=== PATIENT | male | born 1975 | race Caucasian/White ===

== ENCOUNTER 2017-12-20 17:45 | Inpatient (IN) | payer BC ==
[2017-12-20 21:47] LABS: ADD MAN DIFF? NO
[2017-12-20 21:51] LABS: WHITE BLOOD COUNT 9.7 10^3/ul (4.8-10.8)
[2017-12-20 21:51] LABS: BASOPHIL # 0.1 10^3/ul (0.0-0.1); BASOPHILS % 0.5 % (0.0-2.0); EOSINOPHILS # 0.1 10^3/ul (0.0-0.5); EOSINOPHILS % 1.2 % (0.0-7.0); HEMATOCRIT 39.2 % (42.0-52.0); HEMOGLOBIN 12.4 g/dl (14.0-18.0); LYMPHOCYTES # 2.4 10^3/ul (0.8-2.9); LYMPHOCYTES % 24.6 % (15.0-51.0); MEAN CORPUSCULAR HEMOGLOBIN 26.9 pg (29.0-33.0); MEAN CORPUSCULAR HGB CONC 31.6 g/dl (32.0-37.0); MONOCYTE # 0.8 10^3/ul (0.3-0.9); MONOCYTES % 8.3 % (0.0-11.0); NEUTROPHIL # 6.3 10^3/ul (1.6-7.5); NEUTROPHILS % 65.2 % (39.0-77.0); PLATELET COUNT 294 10^3/UL (140-415); RED BLOOD COUNT 4.61 10^6/ul (4.70-6.10)
[2017-12-20 22:11] LABS: ALANINE AMINOTRANSFERASE 19 IU/L (13-69); ALBUMIN 4.2 g/dl (3.3-4.9); ALBUMIN/GLOBULIN RATIO 0.87; ALKALINE PHOSPHATASE 73 IU/L (42-121); ANION GAP 14 (8-16); ASPARTATE AMINO TRANSFERASE 21 IU/L (15-46); BILIRUBIN,INDIRECT 0.3 mg/dl (0-1.1); BILIRUBIN,TOTAL 0.3 mg/dl (0.2-1.3); BLOOD UREA NITROGEN 15 mg/dl (7-20); CALCIUM 9.5 mg/dl (8.4-10.2); CARBON DIOXIDE 26 mmol/L (21-31); CHLORIDE 108 mmol/L (97-110); CREATININE 0.91 mg/dl (0.61-1.24); GLUCOSE 101 mg/dl (70-220); POTASSIUM 4.6 mmol/L (3.5-5.1); SODIUM 143 mmol/L (135-144)
[2017-12-20] MEDS: SOD CHLORIDE 0.9% 500 ML IV (22:11)
[2017-12-20] MEDS: CEFEPIME 2GM/50 ML (PMX) 50 ML IVPB (22:11)
[2017-12-20] MEDS: VANCOMYCIN 1 GM (PMX) 250 ML IVPB (22:53)
[2017-12-20] MEDS: IOHEXOL 300MG/ML 150 ML BTL (23:29)
[2017-12-20] MEDS: SOD CHLORIDE 0.9% 100 ML (23:29)
[2017-12-20] MEDS ORDERED: ACETAMINOPHEN 325 MG TAB PO (23:30)
[2017-12-20] MEDS ORDERED: ONDANSETRON 4 MG INJ IV (23:30)
[2017-12-21] MEDS ORDERED: NACL 0.9% 3 ML SYG IV (05:00)
[2017-12-21] MEDS ORDERED: ONDANSETRON 4 MG INJ IV (05:00)
[2017-12-21] MEDS ORDERED: ALBUTEROL/IPRATROPIUM (NEB) 3 ML AMP HHN (05:00)
[2017-12-21] MEDS ORDERED: ACETAMINOPHEN 325 MG TAB PO (05:00)
[2017-12-21 05:49] LABS: ADD MAN DIFF? NO
[2017-12-21 06:01] LABS: WHITE BLOOD COUNT 8.1 10^3/ul (4.8-10.8)
[2017-12-21 06:01] LABS: BASOPHIL # 0.1 10^3/ul (0.0-0.1); BASOPHILS % 0.6 % (0.0-2.0); EOSINOPHILS # 0.1 10^3/ul (0.0-0.5); EOSINOPHILS % 1.5 % (0.0-7.0); HEMATOCRIT 36.1 % (42.0-52.0); HEMOGLOBIN 11.6 g/dl (14.0-18.0); LYMPHOCYTES # 1.5 10^3/ul (0.8-2.9); LYMPHOCYTES % 18.6 % (15.0-51.0); MEAN CORPUSCULAR HEMOGLOBIN 27.2 pg (29.0-33.0); MEAN CORPUSCULAR HGB CONC 32.1 g/dl (32.0-37.0); MEAN CORPUSCULAR VOLUME 84.7 fl (82.0-101.0); MEAN PLATELET VOLUME 10.4 fl (7.4-10.4); MONOCYTE # 0.9 10^3/ul (0.3-0.9); MONOCYTES % 11.4 % (0.0-11.0); NEUTROPHIL # 5.4 10^3/ul (1.6-7.5); NEUTROPHILS % 67.7 % (39.0-77.0); PLATELET COUNT 269 10^3/UL (140-415); RED BLOOD COUNT 4.26 10^6/ul (4.70-6.10)
[2017-12-21 07:23] LABS: ALANINE AMINOTRANSFERASE 24 IU/L (13-69); ALBUMIN 3.3 g/dl (3.3-4.9); ALBUMIN/GLOBULIN RATIO 0.82; ALKALINE PHOSPHATASE 57 IU/L (42-121); ANION GAP 12 (8-16); ASPARTATE AMINO TRANSFERASE 18 IU/L (15-46); BILIRUBIN,INDIRECT 0.4 mg/dl (0-1.1); BILIRUBIN,TOTAL 0.4 mg/dl (0.2-1.3); BLOOD UREA NITROGEN 13 mg/dl (7-20); CARBON DIOXIDE 28 mmol/L (21-31); CHLORIDE 109 mmol/L (97-110); CREATININE 1.13 mg/dl (0.61-1.24); GLUCOSE 133 mg/dl (70-220); MAGNESIUM 2.2 mg/dl (1.7-2.5); POTASSIUM 3.9 mmol/L (3.5-5.1); SODIUM 145 mmol/L (135-144); TOTAL PROTEIN 7.3 g/dl (6.1-8.1)
[2017-12-21] MEDS: LEVOFLOXACIN 500MG/D5W (PMX) 100 ML IVPB (09:47)
[2017-12-22 05:54] LABS: ADD MAN DIFF? NO
[2017-12-22 06:03] LABS: WHITE BLOOD COUNT 9.4 10^3/ul (4.8-10.8)
[2017-12-22 06:03] LABS: BASOPHIL # 0.1 10^3/ul (0.0-0.1); BASOPHILS % 0.5 % (0.0-2.0); EOSINOPHILS # 0.2 10^3/ul (0.0-0.5); EOSINOPHILS % 1.6 % (0.0-7.0); HEMATOCRIT 37.1 % (42.0-52.0); HEMOGLOBIN 11.8 g/dl (14.0-18.0); LYMPHOCYTES # 1.8 10^3/ul (0.8-2.9); LYMPHOCYTES % 18.8 % (15.0-51.0); MEAN CORPUSCULAR HEMOGLOBIN 26.5 pg (29.0-33.0); MEAN CORPUSCULAR HGB CONC 31.8 g/dl (32.0-37.0); MEAN CORPUSCULAR VOLUME 83.4 fl (82.0-101.0); MEAN PLATELET VOLUME 10.4 fl (7.4-10.4); MONOCYTE # 1.1 10^3/ul (0.3-0.9); MONOCYTES % 11.3 % (0.0-11.0); NEUTROPHIL # 6.3 10^3/ul (1.6-7.5); NEUTROPHILS % 67.5 % (39.0-77.0); PLATELET COUNT 266 10^3/UL (140-415); RED BLOOD COUNT 4.45 10^6/ul (4.70-6.10); RED CELL DISTRIBUTION WIDTH 13.2 % (11.5-14.5)
[2017-12-22 07:01] LABS: ANION GAP 12 (8-16); BLOOD UREA NITROGEN 16 mg/dl (7-20); CALCIUM 9.3 mg/dl (8.4-10.2); CARBON DIOXIDE 29 mmol/L (21-31); CHLORIDE 106 mmol/L (97-110); CREATININE 0.95 mg/dl (0.61-1.24); GLUCOSE 91 mg/dl (70-220); MAGNESIUM 2.3 mg/dl (1.7-2.5); PHOSPHORUS 3.6 mg/dl (2.5-4.9); POTASSIUM 4.4 mmol/L (3.5-5.1); SODIUM 143 mmol/L (135-144)
[2017-12-22] MEDS: LEVOFLOXACIN 500MG/D5W (PMX) 100 ML IVPB (09:00)
[2017-12-22] MEDS: ISONIAZID 300 MG TAB PO (19:01)
[2017-12-22] MEDS: RIFAMPIN 300 MG CAP PO (19:01)
[2017-12-22] MEDS: ETHAMBUTOL 400 MG TAB PO (19:01)
[2017-12-22] MEDS: PYRAZINAMIDE 500 MG TAB PO (19:02)
[2017-12-22] MEDS: PYRIDOXINE 50 MG TAB PO (19:02)
[2017-12-23 06:16] LABS: ADD MAN DIFF? NO
[2017-12-23 06:22] LABS: BASOPHIL # 0.1 10^3/ul (0.0-0.1); BASOPHILS % 0.6 % (0.0-2.0); EOSINOPHILS # 0.2 10^3/ul (0.0-0.5); EOSINOPHILS % 1.5 % (0.0-7.0); HEMATOCRIT 40.1 % (42.0-52.0); HEMOGLOBIN 12.4 g/dl (14.0-18.0); LYMPHOCYTES # 1.8 10^3/ul (0.8-2.9); LYMPHOCYTES % 18.6 % (15.0-51.0); MEAN CORPUSCULAR HEMOGLOBIN 26.6 pg (29.0-33.0); MEAN CORPUSCULAR HGB CONC 30.9 g/dl (32.0-37.0); MEAN CORPUSCULAR VOLUME 85.9 fl (82.0-101.0); MEAN PLATELET VOLUME 10.6 fl (7.4-10.4); MONOCYTE # 1.1 10^3/ul (0.3-0.9); MONOCYTES % 11.4 % (0.0-11.0); NEUTROPHIL # 6.7 10^3/ul (1.6-7.5); NEUTROPHILS % 67.6 % (39.0-77.0); PLATELET COUNT 292 10^3/UL (140-415); RED BLOOD COUNT 4.67 10^6/ul (4.70-6.10); RED CELL DISTRIBUTION WIDTH 13.1 % (11.5-14.5)
[2017-12-23 06:22] LABS: WHITE BLOOD COUNT 9.9 10^3/ul (4.8-10.8)
[2017-12-23 06:42] LABS: PHOSPHORUS 3.9 mg/dl (2.5-4.9)
[2017-12-23 06:42] LABS: MAGNESIUM 2.1 mg/dl (1.7-2.5)
[2017-12-23 06:48] LABS: ANION GAP 14 (8-16); BLOOD UREA NITROGEN 21 mg/dl (7-20); CALCIUM 9.3 mg/dl (8.4-10.2); CARBON DIOXIDE 28 mmol/L (21-31); CHLORIDE 107 mmol/L (97-110); CREATININE 0.95 mg/dl (0.61-1.24); GLUCOSE 103 mg/dl (70-220); POTASSIUM 4.3 mmol/L (3.5-5.1); SODIUM 145 mmol/L (135-144)
[2017-12-23] MEDS: LEVOFLOXACIN 500MG/D5W (PMX) 100 ML IVPB (09:18)
[2017-12-23] MEDS: RIFAMPIN 300 MG CAP PO (09:19)
[2017-12-23] MEDS: ETHAMBUTOL 400 MG TAB PO (09:19)
[2017-12-23] MEDS: PYRIDOXINE 50 MG TAB PO (09:19)
[2017-12-23] MEDS: PYRAZINAMIDE 500 MG TAB PO (09:19)
[2017-12-23] MEDS: ISONIAZID 300 MG TAB PO (09:27)
[2017-12-24] MEDS: LEVOFLOXACIN 500MG/D5W (PMX) 100 ML IVPB (08:54)
[2017-12-24] MEDS: ETHAMBUTOL 400 MG TAB PO (08:54)
[2017-12-24] MEDS: PYRAZINAMIDE 500 MG TAB PO (08:54)
[2017-12-24] MEDS: ISONIAZID 300 MG TAB PO (08:54)
[2017-12-24] MEDS: RIFAMPIN 300 MG CAP PO (08:55)
[2017-12-24] MEDS: PYRIDOXINE 50 MG TAB PO (08:55)
[2017-12-24 12:03] LABS: HAAIG REFLEX REFLEX FILED
[2017-12-24 13:09] LABS: HEPATITIS B SURFACE ANTIGEN NEGATIVE (NEGATIVE)
[2017-12-24 13:26] LABS: HEPATITIS B CORE ANTIBODY NEGATIVE (NEGATIVE); HIV 1&2 ANTIBODY NEGATIVE (NEGATIVE)
[2017-12-24 14:34] LABS: HEPATITIS C VIRAL ANTIBODY NEGATIVE (NEGATIVE)
[2017-12-24] MEDS: CIPROFLOXACIN HCL OTIC DROP 0.25 ML BOTH EARS ×2 (17:22→20:56)
[2017-12-25] MEDS: PYRAZINAMIDE 500 MG TAB PO (09:02)
[2017-12-25] MEDS: CIPROFLOXACIN HCL OTIC DROP 0.25 ML BOTH EARS ×2 (09:02→22:13)
[2017-12-25] MEDS: PYRIDOXINE 50 MG TAB PO (09:02)
[2017-12-25] MEDS: RIFAMPIN 300 MG CAP PO (09:02)
[2017-12-25] MEDS: ISONIAZID 300 MG TAB PO (09:03)
[2017-12-25] MEDS: ETHAMBUTOL 400 MG TAB PO (09:10)
[2017-12-26] MEDS: CIPROFLOXACIN HCL OTIC DROP 0.25 ML BOTH EARS ×2 (08:28→20:25)
[2017-12-26] MEDS: PYRAZINAMIDE 500 MG TAB PO (08:28)
[2017-12-26] MEDS: ISONIAZID 300 MG TAB PO (08:28)
[2017-12-26] MEDS: PYRIDOXINE 50 MG TAB PO (08:28)
[2017-12-26] MEDS: RIFAMPIN 300 MG CAP PO (08:28)
[2017-12-26] MEDS: ETHAMBUTOL 400 MG TAB PO (08:29)
[2017-12-26] MEDS ORDERED: CEPASTAT LOZENGE MT (12:30)
[2017-12-27] MEDS: CIPROFLOXACIN HCL OTIC DROP 0.25 ML BOTH EARS ×2 (08:48→21:12)
[2017-12-27] MEDS: PYRAZINAMIDE 500 MG TAB PO (08:49)
[2017-12-27] MEDS: ISONIAZID 300 MG TAB PO (08:49)
[2017-12-27] MEDS: PYRIDOXINE 50 MG TAB PO (08:49)
[2017-12-27] MEDS: RIFAMPIN 300 MG CAP PO (08:49)
[2017-12-27] MEDS: ETHAMBUTOL 400 MG TAB PO (08:49)
[2017-12-28] MEDS: ISONIAZID 300 MG TAB PO (09:21)
[2017-12-28] MEDS: PYRAZINAMIDE 500 MG TAB PO (09:21)
[2017-12-28] MEDS: ETHAMBUTOL 400 MG TAB PO (09:21)
[2017-12-28] MEDS: RIFAMPIN 300 MG CAP PO (09:21)
[2017-12-28] MEDS: CIPROFLOXACIN HCL OTIC DROP 0.25 ML BOTH EARS ×2 (09:21→21:22)
[2017-12-28] MEDS: PYRIDOXINE 50 MG TAB PO (09:21)
[2017-12-28 20:42] LABS: NIL 0.04 IU/mL; QUANTIFERON(R)-TB GOLD NEGATIVE (NEGATIVE); TB-NIL <0.00 IU/mL
[2017-12-29] MEDS: PYRIDOXINE 50 MG TAB PO (08:19)
[2017-12-29] MEDS: ISONIAZID 300 MG TAB PO (08:19)
[2017-12-29] MEDS: CIPROFLOXACIN HCL OTIC DROP 0.25 ML BOTH EARS ×2 (08:19→20:10)
[2017-12-29] MEDS: RIFAMPIN 300 MG CAP PO (08:19)
[2017-12-29] MEDS: PYRAZINAMIDE 500 MG TAB PO (08:19)
[2017-12-29] MEDS: ETHAMBUTOL 400 MG TAB PO (08:20)
[2017-12-30] MEDS: RIFAMPIN 300 MG CAP PO (09:00)
[2017-12-30] MEDS: ISONIAZID 300 MG TAB PO (09:01)
[2017-12-30] MEDS: PYRIDOXINE 50 MG TAB PO (09:01)
[2017-12-30] MEDS: ETHAMBUTOL 400 MG TAB PO (09:01)
[2017-12-30] MEDS: PYRAZINAMIDE 500 MG TAB PO (09:01)
[2017-12-30] MEDS: CIPROFLOXACIN HCL OTIC DROP 0.25 ML BOTH EARS ×2 (09:02→20:10)
[2017-12-31] MEDS: CIPROFLOXACIN HCL OTIC DROP 0.25 ML BOTH EARS ×2 (08:24→22:22)
[2017-12-31] MEDS: RIFAMPIN 300 MG CAP PO (08:24)
[2017-12-31] MEDS: ISONIAZID 300 MG TAB PO (08:24)
[2017-12-31] MEDS: PYRIDOXINE 50 MG TAB PO (08:24)
[2017-12-31] MEDS: ETHAMBUTOL 400 MG TAB PO (08:24)
[2017-12-31] MEDS: PYRAZINAMIDE 500 MG TAB PO (08:24)
[2017-12-31 12:46] LABS: ALANINE AMINOTRANSFERASE 69 IU/L (13-69); ALBUMIN/GLOBULIN RATIO 0.78; ALKALINE PHOSPHATASE 88 IU/L (42-121); ANION GAP 11 (8-16); ASPARTATE AMINO TRANSFERASE 49 IU/L (15-46); BILIRUBIN,INDIRECT 0.5 mg/dl (0-1.1); BILIRUBIN,TOTAL 0.5 mg/dl (0.2-1.3); BLOOD UREA NITROGEN 17 mg/dl (7-20); CARBON DIOXIDE 29 mmol/L (21-31); CHLORIDE 105 mmol/L (97-110); CREATININE 0.92 mg/dl (0.61-1.24); GLUCOSE 93 mg/dl (70-220); POTASSIUM 4.2 mmol/L (3.5-5.1); SODIUM 141 mmol/L (135-144); TOTAL PROTEIN 9.1 g/dl (6.1-8.1)
[2018-01-01] MEDS: ETHAMBUTOL 400 MG TAB PO (08:29)
[2018-01-01] MEDS: RIFAMPIN 300 MG CAP PO (08:29)
[2018-01-01] MEDS: ISONIAZID 300 MG TAB PO (08:29)
[2018-01-01] MEDS: PYRAZINAMIDE 500 MG TAB PO (08:29)
[2018-01-01] MEDS: PYRIDOXINE 50 MG TAB PO (08:29)
[2018-01-01] MEDS: CIPROFLOXACIN HCL OTIC DROP 0.25 ML BOTH EARS ×2 (08:29→20:42)
[2018-01-02] MEDS: PYRIDOXINE 50 MG TAB PO (08:27)
[2018-01-02] MEDS: RIFAMPIN 300 MG CAP PO (08:27)
[2018-01-02] MEDS: CIPROFLOXACIN HCL OTIC DROP 0.25 ML BOTH EARS ×2 (08:27→20:55)
[2018-01-02] MEDS: ISONIAZID 300 MG TAB PO (08:27)
[2018-01-02] MEDS: ETHAMBUTOL 400 MG TAB PO (08:27)
[2018-01-02] MEDS: PYRAZINAMIDE 500 MG TAB PO (08:28)
[2018-01-03] MEDS: ISONIAZID 300 MG TAB PO (08:18)
[2018-01-03] MEDS: PYRIDOXINE 50 MG TAB PO (08:18)
[2018-01-03] MEDS: PYRAZINAMIDE 500 MG TAB PO (08:18)
[2018-01-03] MEDS: RIFAMPIN 300 MG CAP PO (08:18)
[2018-01-03] MEDS: CIPROFLOXACIN HCL OTIC DROP 0.25 ML BOTH EARS ×2 (08:19→20:35)
[2018-01-03] MEDS: ETHAMBUTOL 400 MG TAB PO (08:19)
[2018-01-03 09:18] LABS: ALANINE AMINOTRANSFERASE 66 IU/L (13-69); ALBUMIN 3.6 g/dl (3.3-4.9); ALBUMIN/GLOBULIN RATIO 0.73; ALKALINE PHOSPHATASE 87 IU/L (42-121); ANION GAP 13 (8-16); ASPARTATE AMINO TRANSFERASE 54 IU/L (15-46); BILIRUBIN,INDIRECT 0.2 mg/dl (0-1.1); BILIRUBIN,TOTAL 0.2 mg/dl (0.2-1.3); BLOOD UREA NITROGEN 17 mg/dl (7-20); CALCIUM 9.7 mg/dl (8.4-10.2); CARBON DIOXIDE 27 mmol/L (21-31); CHLORIDE 106 mmol/L (97-110); CREATININE 0.96 mg/dl (0.61-1.24); GLUCOSE 100 mg/dl (70-220); POTASSIUM 4.3 mmol/L (3.5-5.1); SODIUM 142 mmol/L (135-144); TOTAL PROTEIN 8.5 g/dl (6.1-8.1)
[2018-01-04] MEDS: ETHAMBUTOL 400 MG TAB PO (08:35)
[2018-01-04] MEDS: ISONIAZID 300 MG TAB PO (08:35)
[2018-01-04] MEDS: PYRIDOXINE 50 MG TAB PO (08:35)
[2018-01-04] MEDS: CIPROFLOXACIN HCL OTIC DROP 0.25 ML BOTH EARS ×2 (08:35→20:57)
[2018-01-04] MEDS: RIFAMPIN 300 MG CAP PO (08:36)
[2018-01-04] MEDS: PYRAZINAMIDE 500 MG TAB PO (08:36)
[2018-01-05] MEDS: CIPROFLOXACIN HCL OTIC DROP 0.25 ML BOTH EARS ×2 (08:45→20:59)
[2018-01-05] MEDS: PYRAZINAMIDE 500 MG TAB PO (08:45)
[2018-01-05] MEDS: ISONIAZID 300 MG TAB PO (08:45)
[2018-01-05] MEDS: RIFAMPIN 300 MG CAP PO (08:45)
[2018-01-05] MEDS: ETHAMBUTOL 400 MG TAB PO (08:45)
[2018-01-05] MEDS: PYRIDOXINE 50 MG TAB PO (08:45)
[2018-01-06] MEDS: RIFAMPIN 300 MG CAP PO (08:14)
[2018-01-06] MEDS: PYRIDOXINE 50 MG TAB PO (08:14)
[2018-01-06] MEDS: PYRAZINAMIDE 500 MG TAB PO (08:14)
[2018-01-06] MEDS: ISONIAZID 300 MG TAB PO (08:14)
[2018-01-06] MEDS: ETHAMBUTOL 400 MG TAB PO (08:14)
[2018-01-06] MEDS ORDERED: ONDANSETRON 4 MG TAB PO (14:00)
[2018-01-07] MEDS: PYRAZINAMIDE 500 MG TAB PO (08:50)
[2018-01-07] MEDS: PYRIDOXINE 50 MG TAB PO (08:50)
[2018-01-07] MEDS: ETHAMBUTOL 400 MG TAB PO (08:50)
[2018-01-07] MEDS: ISONIAZID 300 MG TAB PO (08:50)
[2018-01-07] MEDS: RIFAMPIN 300 MG CAP PO (08:50)
[2018-01-07 12:38] LABS: ADD MAN DIFF? NO
[2018-01-07 12:44] LABS: BASOPHIL # 0.1 10^3/ul (0.0-0.1); BASOPHILS % 0.6 % (0.0-2.0); EOSINOPHILS # 0.1 10^3/ul (0.0-0.5); EOSINOPHILS % 1.1 % (0.0-7.0); HEMATOCRIT 39.1 % (42.0-52.0); HEMOGLOBIN 12.4 g/dl (14.0-18.0); LYMPHOCYTES # 1.8 10^3/ul (0.8-2.9); LYMPHOCYTES % 18.3 % (15.0-51.0); MEAN CORPUSCULAR HEMOGLOBIN 26.7 pg (29.0-33.0); MEAN CORPUSCULAR HGB CONC 31.7 g/dl (32.0-37.0); MEAN CORPUSCULAR VOLUME 84.1 fl (82.0-101.0); MONOCYTE # 0.8 10^3/ul (0.3-0.9); MONOCYTES % 8.4 % (0.0-11.0); NEUTROPHILS % 71.3 % (39.0-77.0); PLATELET COUNT 280 10^3/UL (140-415); RED BLOOD COUNT 4.65 10^6/ul (4.70-6.10)
[2018-01-07 12:44] LABS: WHITE BLOOD COUNT 9.8 10^3/ul (4.8-10.8)
[2018-01-07 13:18] LABS: ALANINE AMINOTRANSFERASE 85 IU/L (13-69); ALBUMIN 3.4 g/dl (3.3-4.9); ALKALINE PHOSPHATASE 83 IU/L (42-121); ASPARTATE AMINO TRANSFERASE 55 IU/L (15-46); BILIRUBIN,INDIRECT 0.7 mg/dl (0-1.1); BILIRUBIN,TOTAL 0.7 mg/dl (0.2-1.3); TOTAL PROTEIN 7.7 g/dl (6.1-8.1)
[2018-01-08] MEDS: RIFAMPIN 300 MG CAP PO (08:32)
[2018-01-08] MEDS: PYRAZINAMIDE 500 MG TAB PO (08:32)
[2018-01-08] MEDS: ETHAMBUTOL 400 MG TAB PO (08:32)
[2018-01-08] MEDS: ISONIAZID 300 MG TAB PO (08:32)
[2018-01-08] MEDS: PYRIDOXINE 50 MG TAB PO (08:33)
[2018-01-09] MEDS: PYRIDOXINE 50 MG TAB PO (08:35)
[2018-01-09] MEDS: RIFAMPIN 300 MG CAP PO (08:35)
[2018-01-09] MEDS: ISONIAZID 300 MG TAB PO (08:35)
[2018-01-09] MEDS: PYRAZINAMIDE 500 MG TAB PO (09:52)
[2018-01-09] MEDS: ETHAMBUTOL 400 MG TAB PO (09:52)
[2018-01-10] MEDS: PYRAZINAMIDE 500 MG TAB PO (08:24)
[2018-01-10] MEDS: ISONIAZID 300 MG TAB PO (08:24)
[2018-01-10] MEDS: PYRIDOXINE 50 MG TAB PO (08:24)
[2018-01-10] MEDS: ETHAMBUTOL 400 MG TAB PO (08:24)
[2018-01-10] MEDS: RIFAMPIN 300 MG CAP PO (08:24)
[2018-01-10 11:04] LABS: ADD MAN DIFF? NO
[2018-01-10 11:06] LABS: BASOPHILS % 0.3 % (0.0-2.0); EOSINOPHILS # 0.1 10^3/ul (0.0-0.5); EOSINOPHILS % 0.6 % (0.0-7.0); HEMATOCRIT 38.8 % (42.0-52.0); HEMOGLOBIN 12.5 g/dl (14.0-18.0); LYMPHOCYTES # 1.5 10^3/ul (0.8-2.9); MEAN CORPUSCULAR HGB CONC 32.2 g/dl (32.0-37.0); MEAN CORPUSCULAR VOLUME 83.8 fl (82.0-101.0); MONOCYTE # 0.7 10^3/ul (0.3-0.9); MONOCYTES % 7.4 % (0.0-11.0); NEUTROPHIL # 7.4 10^3/ul (1.6-7.5); NEUTROPHILS % 76.4 % (39.0-77.0); PLATELET COUNT 275 10^3/UL (140-415); RED BLOOD COUNT 4.63 10^6/ul (4.70-6.10)
[2018-01-10 11:06] LABS: WHITE BLOOD COUNT 9.7 10^3/ul (4.8-10.8)
[2018-01-10 11:24] LABS: ALANINE AMINOTRANSFERASE 72 IU/L (13-69); ALBUMIN 3.3 g/dl (3.3-4.9); ALKALINE PHOSPHATASE 78 IU/L (42-121); ASPARTATE AMINO TRANSFERASE 42 IU/L (15-46); BILIRUBIN,INDIRECT 0.6 mg/dl (0-1.1); BILIRUBIN,TOTAL 0.6 mg/dl (0.2-1.3); TOTAL PROTEIN 7.5 g/dl (6.1-8.1)
[2018-01-10 11:25] LABS: ALANINE AMINOTRANSFERASE 60 IU/L (13-69); ALBUMIN 3.8 g/dl (3.3-4.9); ALKALINE PHOSPHATASE 80 IU/L (42-121); ANION GAP 13 (8-16); ASPARTATE AMINO TRANSFERASE 44 IU/L (15-46); BILIRUBIN,INDIRECT 0.5 mg/dl (0-1.1); BILIRUBIN,TOTAL 0.5 mg/dl (0.2-1.3); BLOOD UREA NITROGEN 13 mg/dl (7-20); CALCIUM 9.5 mg/dl (8.4-10.2); CARBON DIOXIDE 27 mmol/L (21-31); CHLORIDE 107 mmol/L (97-110); CREATININE 0.88 mg/dl (0.61-1.24); GLUCOSE 103 mg/dl (70-220); POTASSIUM 4.1 mmol/L (3.5-5.1); SODIUM 143 mmol/L (135-144); TOTAL PROTEIN 8.5 g/dl (6.1-8.1)
[2018-01-11] MEDS: PYRAZINAMIDE 500 MG TAB PO (08:57)
[2018-01-11] MEDS: RIFAMPIN 300 MG CAP PO (08:57)
[2018-01-11] MEDS: ISONIAZID 300 MG TAB PO (08:57)
[2018-01-11] MEDS: PYRIDOXINE 50 MG TAB PO (08:57)
[2018-01-11] MEDS: ETHAMBUTOL 400 MG TAB PO (08:58)
[2018-01-12] MEDS: ETHAMBUTOL 400 MG TAB PO (09:03)
[2018-01-12] MEDS: PYRAZINAMIDE 500 MG TAB PO (09:04)
[2018-01-12] MEDS: ISONIAZID 300 MG TAB PO (09:04)
[2018-01-12] MEDS: PYRIDOXINE 50 MG TAB PO (09:04)
[2018-01-12] MEDS: RIFAMPIN 300 MG CAP PO (09:04)
[2018-01-13 07:10] LABS: ALANINE AMINOTRANSFERASE 70 IU/L (13-69); ALBUMIN 3.1 g/dl (3.3-4.9); ALBUMIN/GLOBULIN RATIO 0.72; ALKALINE PHOSPHATASE 77 IU/L (42-121); ANION GAP 11 (8-16); ASPARTATE AMINO TRANSFERASE 58 IU/L (15-46); BILIRUBIN,INDIRECT 0.3 mg/dl (0-1.1); BILIRUBIN,TOTAL 0.3 mg/dl (0.2-1.3); BLOOD UREA NITROGEN 18 mg/dl (7-20); CALCIUM 9.2 mg/dl (8.4-10.2); CARBON DIOXIDE 28 mmol/L (21-31); CHLORIDE 107 mmol/L (97-110); CREATININE 1.04 mg/dl (0.61-1.24); GLUCOSE 99 mg/dl (70-220); POTASSIUM 4.4 mmol/L (3.5-5.1); SODIUM 142 mmol/L (135-144); TOTAL PROTEIN 7.4 g/dl (6.1-8.1)
[2018-01-13] MEDS: PYRAZINAMIDE 500 MG TAB PO (08:46)
[2018-01-13] MEDS: PYRIDOXINE 50 MG TAB PO (08:47)
[2018-01-13] MEDS: ISONIAZID 300 MG TAB PO (08:47)
[2018-01-13] MEDS: RIFAMPIN 300 MG CAP PO (08:48)
[2018-01-13] MEDS: ETHAMBUTOL 400 MG TAB PO (08:48)
== END 2018-01-13 18:43 | disposition home or self-care (01) | DRG 178 ==
LOC: PP2 01-06 15:00 → 6WM 23:16 → FTE 17:45 → PP2 12-24 22:36
DX: A15.0 Tuberculosis of lung (principal); J21.9 Acute bronchiolitis, unspecified; Z86.11 Personal history of tuberculosis; R59.1 Generalized enlarged lymph nodes
CPT/HCPCS: 71045; 71046; 71260; 80048; 80053; 80076; 83735; 84100; 85025; 86480; 86635; 86703; 86704; 86709; 86803; 87040; 87116; 87340; 87556; 96365; 96375; 99285-25

== ENCOUNTER 2018-02-07 17:31 | Emergency (ER) | payer BC ==
[2018-02-07 20:35] LABS: ADD MAN DIFF? NO
[2018-02-07 20:37] LABS: BASOPHIL # 0.1 10^3/ul (0.0-0.1); BASOPHILS % 0.6 % (0.0-2.0); EOSINOPHILS # 0.1 10^3/ul (0.0-0.5); HEMATOCRIT 40.6 % (42.0-52.0); HEMOGLOBIN 12.9 g/dl (14.0-18.0); LYMPHOCYTES # 2.7 10^3/ul (0.8-2.9); LYMPHOCYTES % 33.2 % (15.0-51.0); MEAN CORPUSCULAR HEMOGLOBIN 27.1 pg (29.0-33.0); MEAN CORPUSCULAR HGB CONC 31.8 g/dl (32.0-37.0); MEAN CORPUSCULAR VOLUME 85.3 fl (82.0-101.0); MEAN PLATELET VOLUME 10.6 fl (7.4-10.4); MONOCYTE # 0.8 10^3/ul (0.3-0.9); MONOCYTES % 9.7 % (0.0-11.0); NEUTROPHIL # 4.4 10^3/ul (1.6-7.5); NEUTROPHILS % 55.3 % (39.0-77.0); PLATELET COUNT 257 10^3/UL (140-415); RED BLOOD COUNT 4.76 10^6/ul (4.70-6.10); RED CELL DISTRIBUTION WIDTH 13.7 % (11.5-14.5)
[2018-02-07 20:50] LABS: ADD UMIC YES; UR ASCORBIC ACID NEGATIVE (NEGATIVE); UR BILIRUBIN (Dip) NEGATIVE (NEGATIVE); UR BLOOD (Dip) 1+ mg/dL (NEGATIVE); UR CLARITY CLEAR (CLEAR); UR COLOR YELLOW (YELLOW); UR GLUCOSE (Dip) NEGATIVE (NEGATIVE); UR KETONES (Dip) NEGATIVE (NEGATIVE); UR LEUKOCYTE ESTERASE (Dip) NEGATIVE Leu/ul (NEGATIVE); UR MUCUS FEW /HPF (NONE SEEN); UR NITRITE (Dip) NEGATIVE (NEGATIVE); UR RBC 2 /HPF (0-5); UR SPECIFIC GRAVITY (Dip) 1.019 (1.003-1.030); UR TOTAL PROTEIN (Dip) NEGATIVE (NEGATIVE); UR UROBILINOGEN (Dip) 1+ mg/dL (NEGATIVE); UR WBC 0 /HPF (0-5)
[2018-02-07 20:55] LABS: ALANINE AMINOTRANSFERASE 389 IU/L (13-69); ALBUMIN 4.4 g/dl (3.3-4.9); ALBUMIN/GLOBULIN RATIO 0.93; ALKALINE PHOSPHATASE 91 IU/L (42-121); ANION GAP 10 (5-13); ASPARTATE AMINO TRANSFERASE 170 IU/L (15-46); BILIRUBIN,INDIRECT 0.6 mg/dl (0-1.1); BILIRUBIN,TOTAL 0.6 mg/dl (0.2-1.3); BLOOD UREA NITROGEN 16 mg/dl (7-20); CALCIUM 9.6 mg/dl (8.4-10.2); CARBON DIOXIDE 27 mmol/L (21-31); CHLORIDE 104 mmol/L (97-110); CREATININE 0.78 mg/dl (0.61-1.24); Estimated GFR > 60 mL/min (>60); GLUCOSE 90 mg/dl (70-220); LIPASE 104 U/L (23-300); POTASSIUM 3.5 mmol/L (3.5-5.1); SODIUM 141 mmol/L (135-144); TOTAL PROTEIN 9.1 g/dl (6.1-8.1)
[2018-02-07 21:00] LABS: INR 1.02; PROTIME 13.5 Sec (11.9-14.9); PT RATIO 1.1
[2018-02-07 21:01] LABS: PARTIAL THROMBOPLASTIN TIME 43.9 Sec (23.0-35.0)
== END 2018-02-07 22:49 | disposition home or self-care (01) ==
LOC: FTE 17:31
DX: R74.0 Nonspecific elevation of levels of transaminase and lactic acid dehydrogenase [LDH] (principal)
CPT/HCPCS: 36415; 76705; 80053; 81001; 83690; 85025; 85610; 85730; 99284-25

== ENCOUNTER 2018-07-29 01:58 | Inpatient (IN) | payer BC ==
[2018-07-29] MEDS: ONDANSETRON 4 MG INJ IV (02:46)
[2018-07-29] MEDS: ACETAMINOPHEN 325 MG TAB PO ×2 (02:47→18:10)
[2018-07-29] MEDS: CEFTRIAXONE 1 GM/50 ML (PMX) 50 ML IVPB ×2 (02:48→21:26)
[2018-07-29] MEDS: SODIUM CHLORIDE 0.9% 1L BAG IV* (02:48)
[2018-07-29 02:51] LABS: ADD MAN DIFF? NO
[2018-07-29 02:53] LABS: BASOPHILS % 0.3 % (0.0-2.0); EOSINOPHILS % 0.2 % (0.0-7.0); HEMATOCRIT 38.3 % (42.0-52.0); HEMOGLOBIN 12.3 g/dl (14.0-18.0); LYMPHOCYTES # 1.2 10^3/ul (0.8-2.9); LYMPHOCYTES % 18.5 % (15.0-51.0); MEAN CORPUSCULAR HEMOGLOBIN 26.3 pg (29.0-33.0); MEAN CORPUSCULAR HGB CONC 32.1 g/dl (32.0-37.0); MEAN PLATELET VOLUME 10.2 fl (7.4-10.4); MONOCYTES % 15.6 % (0.0-11.0); NEUTROPHIL # 4.1 10^3/ul (1.6-7.5); NEUTROPHILS % 65.1 % (39.0-77.0); PLATELET COUNT 232 10^3/UL (140-415); RED BLOOD COUNT 4.67 10^6/ul (4.70-6.10); RED CELL DISTRIBUTION WIDTH 12.8 % (11.5-14.5)
[2018-07-29 02:53] LABS: WHITE BLOOD COUNT 6.3 10^3/ul (4.8-10.8)
[2018-07-29 03:12] LABS: ALANINE AMINOTRANSFERASE 14 IU/L (13-69); ALBUMIN 4.1 g/dl (3.3-4.9); ALBUMIN/GLOBULIN RATIO 0.91; ALKALINE PHOSPHATASE 73 IU/L (42-121); ANION GAP 13 (5-13); ASPARTATE AMINO TRANSFERASE 27 IU/L (15-46); BILIRUBIN,INDIRECT 0.1 mg/dl (0-1.1); BILIRUBIN,TOTAL 0.1 mg/dl (0.2-1.3); BLOOD UREA NITROGEN 16 mg/dl (7-20); CALCIUM 9.8 mg/dl (8.4-10.2); CARBON DIOXIDE 22 mmol/L (21-31); CHLORIDE 105 mmol/L (97-110); Estimated GFR > 60 mL/min (>60); GLUCOSE 168 mg/dl (70-220); INR 1.03; POTASSIUM 3.7 mmol/L (3.5-5.1); PROTIME 13.6 Sec (11.9-14.9); PT RATIO 1.1; SODIUM 140 mmol/L (135-144); TOTAL PROTEIN 8.6 g/dl (6.1-8.1)
[2018-07-29 03:13] LABS: PARTIAL THROMBOPLASTIN TIME 40.1 Sec (23.0-35.0)
[2018-07-29 03:23] LABS: TROPONIN-I < 0.012 ng/ml (0.000-0.120)
[2018-07-29] MEDS: VANCOMYCIN 1 GM (PMX) 250 ML IVPB (06:15)
[2018-07-29] MEDS ORDERED: BISACODYL (EC) 5 MG TAB PO (08:00)
[2018-07-29] MEDS ORDERED: NACL 0.9% 3 ML SYG IV (08:00)
[2018-07-29 08:05] LABS: LACTIC ACID 0.7 mmol/L (0.5-2.0)
[2018-07-29] MEDS ORDERED: CEFTRIAXONE 1 GM/50 ML (PMX) 50 ML IVPB (11:30)
[2018-07-29] MEDS: AZITHROMYCIN 500MG/NS (PMX) 250 ML IVPB (12:47)
[2018-07-29] MEDS: CLARITHROMYCIN 500 MG TAB PO (21:26)
[2018-07-29] MEDS: RIFABUTIN 150 MG CAP PO (21:29)
[2018-07-29] MEDS ORDERED: VANCOMYCIN IV PER PHARMACY XX (23:30)
[2018-07-30] MEDS: VANCOMYCIN 1 GM 250 ML IVPB ×3 (00:04→15:58)
[2018-07-30] MEDS: ACETAMINOPHEN 325 MG TAB PO ×4 (00:59→20:54)
[2018-07-30] MEDS: ONDANSETRON 4 MG INJ IV (00:59)
[2018-07-30 06:18] LABS: ADD MAN DIFF? NO
[2018-07-30 06:21] LABS: BASOPHILS % 0.7 % (0.0-2.0); EOSINOPHILS % 0.2 % (0.0-7.0); HEMATOCRIT 39.3 % (42.0-52.0); HEMOGLOBIN 12.6 g/dl (14.0-18.0); LYMPHOCYTES % 23.8 % (15.0-51.0); MEAN CORPUSCULAR HEMOGLOBIN 26.6 pg (29.0-33.0); MEAN CORPUSCULAR HGB CONC 32.1 g/dl (32.0-37.0); MEAN CORPUSCULAR VOLUME 83.1 fl (82.0-101.0); MEAN PLATELET VOLUME 10.8 fl (7.4-10.4); MONOCYTE # 0.7 10^3/ul (0.3-0.9); MONOCYTES % 16.8 % (0.0-11.0); NEUTROPHIL # 2.5 10^3/ul (1.6-7.5); NEUTROPHILS % 58.3 % (39.0-77.0); PLATELET COUNT 186 10^3/UL (140-415); RED BLOOD COUNT 4.73 10^6/ul (4.70-6.10); RED CELL DISTRIBUTION WIDTH 12.9 % (11.5-14.5)
[2018-07-30 06:21] LABS: WHITE BLOOD COUNT 4.3 10^3/ul (4.8-10.8)
[2018-07-30 06:45] LABS: ALANINE AMINOTRANSFERASE 27 IU/L (13-69); ALBUMIN 3.7 g/dl (3.3-4.9); ALBUMIN/GLOBULIN RATIO 0.86; ALKALINE PHOSPHATASE 62 IU/L (42-121); ANION GAP 8 (5-13); ASPARTATE AMINO TRANSFERASE 33 IU/L (15-46); BLOOD UREA NITROGEN 12 mg/dl (7-20); CALCIUM 9.3 mg/dl (8.4-10.2); CARBON DIOXIDE 26 mmol/L (21-31); CHLORIDE 106 mmol/L (97-110); CHOL/HDL RATIO 5.7 RATIO; CHOLESTEROL 121 mg/dl (100-200); CREATININE 0.93 mg/dl (0.61-1.24); Estimated GFR > 60 mL/min (>60); GLUCOSE 115 mg/dl (70-220); HDL CHOLESTEROL 21 mg/dl (27-67); LDL CHOLESTEROL,CALCULATED 79 mg/dl; POTASSIUM 4.3 mmol/L (3.5-5.1); SODIUM 140 mmol/L (135-144); TRIGLYCERIDES 105 mg/dl (0-149)
[2018-07-30 06:55] LABS: HEMOGLOBIN A1C 5.4 % (0-5.9)
[2018-07-30 07:29] LABS: THYROID STIMULATING HORMONE 0.937 MIU/L (0.465-4.680)
[2018-07-30] MEDS: ETHAMBUTOL 400 MG TAB PO (09:37)
[2018-07-30] MEDS: CLARITHROMYCIN 500 MG TAB PO ×2 (09:37→20:48)
[2018-07-30] MEDS: RIFABUTIN 150 MG CAP PO ×2 (09:37→20:48)
[2018-07-30] MEDS: AZITHROMYCIN 500MG/NS (PMX) 250 ML IVPB (12:53)
[2018-07-30] MEDS: CEFTRIAXONE 1 GM/50 ML (PMX) 50 ML IVPB (20:48)
[2018-07-30 23:28] LABS: VANCOMYCIN,TROUGH 13.8 ug/ml (10.0-20.0)
[2018-07-31] MEDS: VANCOMYCIN 1 GM 250 ML IVPB ×4 (00:09→23:28)
[2018-07-31] MEDS: ACETAMINOPHEN 325 MG TAB PO ×4 (03:56→23:19)
[2018-07-31] MEDS ORDERED: LEVOFLOXACIN 750 MG TABLET (04:42)
[2018-07-31] MEDS: LEVOFLOXACIN 750 MG TABLET PO (05:26)
[2018-07-31 06:06] LABS: ADD MAN DIFF? NO
[2018-07-31 06:21] LABS: BASOPHILS % 0.5 % (0.0-2.0); HEMATOCRIT 40.5 % (42.0-52.0); LYMPHOCYTES # 1.5 10^3/ul (0.8-2.9); LYMPHOCYTES % 35.9 % (15.0-51.0); MEAN CORPUSCULAR HEMOGLOBIN 26.4 pg (29.0-33.0); MEAN CORPUSCULAR HGB CONC 32.1 g/dl (32.0-37.0); MEAN CORPUSCULAR VOLUME 82.2 fl (82.0-101.0); MONOCYTE # 0.5 10^3/ul (0.3-0.9); NEUTROPHIL # 2.1 10^3/ul (1.6-7.5); NEUTROPHILS % 51.4 % (39.0-77.0); PLATELET COUNT 151 10^3/UL (140-415); RED BLOOD COUNT 4.93 10^6/ul (4.70-6.10)
[2018-07-31 06:21] LABS: WHITE BLOOD COUNT 4.2 10^3/ul (4.8-10.8)
[2018-07-31 07:14] LABS: ALANINE AMINOTRANSFERASE 43 IU/L (13-69); ALBUMIN 3.9 g/dl (3.3-4.9); ALBUMIN/GLOBULIN RATIO 0.92; ALKALINE PHOSPHATASE 69 IU/L (42-121); ANION GAP 12 (5-13); ASPARTATE AMINO TRANSFERASE 44 IU/L (15-46); BILIRUBIN,INDIRECT 0.2 mg/dl (0-1.1); BILIRUBIN,TOTAL 0.2 mg/dl (0.2-1.3); BLOOD UREA NITROGEN 16 mg/dl (7-20); CALCIUM 9.2 mg/dl (8.4-10.2); CARBON DIOXIDE 24 mmol/L (21-31); CHLORIDE 103 mmol/L (97-110); CREATININE 0.98 mg/dl (0.61-1.24); Estimated GFR > 60 mL/min (>60); GLUCOSE 121 mg/dl (70-220); POTASSIUM 4.3 mmol/L (3.5-5.1); SODIUM 139 mmol/L (135-144); TOTAL PROTEIN 8.1 g/dl (6.1-8.1)
[2018-07-31] MEDS: ETHAMBUTOL 400 MG TAB PO (08:24)
[2018-07-31] MEDS: RIFABUTIN 150 MG CAP PO ×2 (08:24→20:25)
[2018-07-31] MEDS: CLARITHROMYCIN 500 MG TAB PO ×2 (08:24→20:25)
[2018-07-31] MEDS: AZITHROMYCIN 500MG/NS (PMX) 250 ML IVPB (13:40)
[2018-07-31] MEDS: ONDANSETRON 4 MG INJ IV (20:24)
[2018-07-31] MEDS: CEFTRIAXONE 1 GM/50 ML (PMX) 50 ML IVPB (20:25)
[2018-08-01] MEDS: LEVOFLOXACIN 750 MG TABLET PO (05:40)
[2018-08-01] MEDS: ACETAMINOPHEN 325 MG TAB PO ×3 (05:41→22:10)
[2018-08-01 07:57] LABS: ADD MAN DIFF? NO
[2018-08-01 07:59] LABS: WHITE BLOOD COUNT 2.8 10^3/ul (4.8-10.8)
[2018-08-01 07:59] LABS: BASOPHILS % 0.4 % (0.0-2.0); HEMOGLOBIN 12.5 g/dl (14.0-18.0); LYMPHOCYTES # 1.3 10^3/ul (0.8-2.9); LYMPHOCYTES % 45.7 % (15.0-51.0); MEAN CORPUSCULAR HEMOGLOBIN 26.5 pg (29.0-33.0); MEAN CORPUSCULAR HGB CONC 32.1 g/dl (32.0-37.0); MEAN CORPUSCULAR VOLUME 82.8 fl (82.0-101.0); MEAN PLATELET VOLUME 11.2 fl (7.4-10.4); MONOCYTE # 0.4 10^3/ul (0.3-0.9); MONOCYTES % 15.1 % (0.0-11.0); NEUTROPHIL # 1.1 10^3/ul (1.6-7.5); NEUTROPHILS % 38.4 % (39.0-77.0); PLATELET COUNT 125 10^3/UL (140-415); RED BLOOD COUNT 4.71 10^6/ul (4.70-6.10); RED CELL DISTRIBUTION WIDTH 12.8 % (11.5-14.5)
[2018-08-01 08:25] LABS: ALANINE AMINOTRANSFERASE 67 IU/L (13-69); ALBUMIN 3.7 g/dl (3.3-4.9); ALBUMIN/GLOBULIN RATIO 0.94; ALKALINE PHOSPHATASE 57 IU/L (42-121); ANION GAP 10 (5-13); ASPARTATE AMINO TRANSFERASE 74 IU/L (15-46); BILIRUBIN,INDIRECT 0.2 mg/dl (0-1.1); BILIRUBIN,TOTAL 0.2 mg/dl (0.2-1.3); BLOOD UREA NITROGEN 18 mg/dl (7-20); CARBON DIOXIDE 27 mmol/L (21-31); CHLORIDE 102 mmol/L (97-110); CREATININE 1.07 mg/dl (0.61-1.24); Estimated GFR > 60 mL/min (>60); GLUCOSE 91 mg/dl (70-220); POTASSIUM 4.6 mmol/L (3.5-5.1); SODIUM 139 mmol/L (135-144); TOTAL PROTEIN 7.6 g/dl (6.1-8.1)
[2018-08-01 08:26] LABS: VANCOMYCIN,TROUGH 13.5 ug/ml (10.0-20.0)
[2018-08-01] MEDS: CLARITHROMYCIN 500 MG TAB PO ×2 (08:56→22:04)
[2018-08-01] MEDS: ETHAMBUTOL 400 MG TAB PO (08:56)
[2018-08-01] MEDS: RIFABUTIN 150 MG CAP PO (08:56)
[2018-08-01] MEDS: VANCOMYCIN 1 GM 250 ML IVPB (08:56)
[2018-08-01 09:14] LABS: ERYTHROCYTE SEDIMENTATION RATE 34 mm/Hr (0-15)
[2018-08-01] MEDS: IBUPROFEN 400 MG TAB PO (17:53)
[2018-08-01] MEDS: CEFTRIAXONE 2 GM/50 ML (PMX) 50 ML IVPB (22:03)
[2018-08-02] MEDS: ACETAMINOPHEN 325 MG TAB PO ×3 (03:59→18:03)
[2018-08-02 05:22] LABS: ADD MAN DIFF? NO
[2018-08-02 05:34] LABS: WHITE BLOOD COUNT 2.6 10^3/ul (4.8-10.8)
[2018-08-02 05:34] LABS: BASOPHILS % 0.4 % (0.0-2.0); HEMATOCRIT 40.2 % (42.0-52.0); HEMOGLOBIN 12.8 g/dl (14.0-18.0); LYMPHOCYTES # 0.9 10^3/ul (0.8-2.9); LYMPHOCYTES % 32.8 % (15.0-51.0); MEAN CORPUSCULAR HEMOGLOBIN 26.6 pg (29.0-33.0); MEAN CORPUSCULAR HGB CONC 31.8 g/dl (32.0-37.0); MEAN CORPUSCULAR VOLUME 83.4 fl (82.0-101.0); MEAN PLATELET VOLUME 11.5 fl (7.4-10.4); MONOCYTE # 0.4 10^3/ul (0.3-0.9); MONOCYTES % 14.7 % (0.0-11.0); NEUTROPHIL # 1.3 10^3/ul (1.6-7.5); NEUTROPHILS % 51.3 % (39.0-77.0); PLATELET COUNT 104 10^3/UL (140-415); RED BLOOD COUNT 4.82 10^6/ul (4.70-6.10); RED CELL DISTRIBUTION WIDTH 12.7 % (11.5-14.5)
[2018-08-02 06:06] LABS: ALANINE AMINOTRANSFERASE 102 IU/L (13-69); ALBUMIN 3.4 g/dl (3.3-4.9); ALBUMIN/GLOBULIN RATIO 0.85; ALKALINE PHOSPHATASE 60 IU/L (42-121); ANION GAP 10 (5-13); ASPARTATE AMINO TRANSFERASE 110 IU/L (15-46); BILIRUBIN,INDIRECT 0.1 mg/dl (0-1.1); BILIRUBIN,TOTAL 0.1 mg/dl (0.2-1.3); BLOOD UREA NITROGEN 18 mg/dl (7-20); CALCIUM 9.1 mg/dl (8.4-10.2); CARBON DIOXIDE 23 mmol/L (21-31); CHLORIDE 107 mmol/L (97-110); CREATININE 1.03 mg/dl (0.61-1.24); Estimated GFR > 60 mL/min (>60); GLUCOSE 115 mg/dl (70-220); SODIUM 140 mmol/L (135-144); TOTAL PROTEIN 7.4 g/dl (6.1-8.1)
[2018-08-02 06:47] LABS: POTASSIUM 5.1 mmol/L (3.5-5.1)
[2018-08-02] MEDS: ETHAMBUTOL 400 MG TAB PO (08:53)
[2018-08-02] MEDS: CLARITHROMYCIN 500 MG TAB PO ×2 (08:53→21:18)
[2018-08-02] MEDS: ONDANSETRON 4 MG INJ IV ×2 (10:14→19:05)
[2018-08-02] MEDS: CEFTRIAXONE 2 GM/50 ML (PMX) 50 ML IVPB (21:18)
[2018-08-03] MEDS: IBUPROFEN 400 MG TAB PO (00:53)
[2018-08-03 05:56] LABS: ADD MAN DIFF? NO
[2018-08-03 06:10] LABS: ABNORMAL IP MESSAGE 1; BASOPHILS % 0.4 % (0.0-2.0); HEMATOCRIT 39.4 % (42.0-52.0); HEMOGLOBIN 12.6 g/dl (14.0-18.0); LYMPHOCYTES # 0.9 10^3/ul (0.8-2.9); LYMPHOCYTES % 36.9 % (15.0-51.0); MEAN CORPUSCULAR HEMOGLOBIN 26.3 pg (29.0-33.0); MEAN CORPUSCULAR VOLUME 82.3 fl (82.0-101.0); MEAN PLATELET VOLUME 11.9 fl (7.4-10.4); MONOCYTE # 0.3 10^3/ul (0.3-0.9); NEUTROPHIL # 1.3 10^3/ul (1.6-7.5); NEUTROPHILS % 51.9 % (39.0-77.0); PLATELET COUNT 96 10^3/UL (140-415); POSITIVE DIFF @See below; RED BLOOD COUNT 4.79 10^6/ul (4.70-6.10)
[2018-08-03 06:10] LABS: WHITE BLOOD COUNT 2.5 10^3/ul (4.8-10.8)
[2018-08-03 06:49] LABS: ANION GAP 7 (5-13); BLOOD UREA NITROGEN 16 mg/dl (7-20); CARBON DIOXIDE 26 mmol/L (21-31); CHLORIDE 108 mmol/L (97-110); CREATININE 0.88 mg/dl (0.61-1.24); Estimated GFR > 60 mL/min (>60); GLUCOSE 111 mg/dl (70-220); POTASSIUM 4.6 mmol/L (3.5-5.1); SODIUM 141 mmol/L (135-144)
[2018-08-03] MEDS: CLARITHROMYCIN 500 MG TAB PO ×2 (09:20→20:44)
[2018-08-03] MEDS: ETHAMBUTOL 400 MG TAB PO (09:22)
[2018-08-03] MEDS: ACETAMINOPHEN 325 MG TAB PO ×2 (12:14→20:44)
[2018-08-03] MEDS: ONDANSETRON 4 MG INJ IV (12:15)
[2018-08-03] MEDS: CEFTRIAXONE 2 GM/50 ML (PMX) 50 ML IVPB (22:13)
[2018-08-04] MEDS: CLARITHROMYCIN 500 MG TAB PO ×2 (09:02→21:29)
[2018-08-04] MEDS: ETHAMBUTOL 400 MG TAB PO (09:02)
[2018-08-04] MEDS: ONDANSETRON 4 MG INJ IV (12:46)
[2018-08-04] MEDS: ACETAMINOPHEN 325 MG TAB PO (12:52)
[2018-08-04 16:00] LABS: HIV 1&2 ANTIBODY NEGATIVE (NEGATIVE)
[2018-08-04] MEDS: CEPASTAT LOZENGE MT (18:23)
[2018-08-04] MEDS: RIFABUTIN 150 MG CAP PO (21:29)
[2018-08-04] MEDS: CEFTRIAXONE 2 GM/50 ML (PMX) 50 ML IVPB (21:30)
[2018-08-05 06:39] LABS: ADD MAN DIFF? NO
[2018-08-05 06:46] LABS: WHITE BLOOD COUNT 3.6 10^3/ul (4.8-10.8)
[2018-08-05 06:46] LABS: BASOPHILS % 0.3 % (0.0-2.0); HEMATOCRIT 41.3 % (42.0-52.0); HEMOGLOBIN 13.1 g/dl (14.0-18.0); LYMPHOCYTES # 1.3 10^3/ul (0.8-2.9); LYMPHOCYTES % 34.4 % (15.0-51.0); MEAN CORPUSCULAR HEMOGLOBIN 26.2 pg (29.0-33.0); MEAN CORPUSCULAR HGB CONC 31.7 g/dl (32.0-37.0); MEAN CORPUSCULAR VOLUME 82.6 fl (82.0-101.0); MEAN PLATELET VOLUME 11.9 fl (7.4-10.4); MONOCYTE # 0.5 10^3/ul (0.3-0.9); MONOCYTES % 12.7 % (0.0-11.0); NEUTROPHIL # 1.9 10^3/ul (1.6-7.5); NEUTROPHILS % 52.3 % (39.0-77.0); POSITIVE DIFF @See below; RED CELL DISTRIBUTION WIDTH 12.9 % (11.5-14.5)
[2018-08-05 07:00] LABS: PLATELET COUNT 117 10^3/UL (140-415)
[2018-08-05] MEDS: CLARITHROMYCIN 500 MG TAB PO ×2 (09:11→20:02)
[2018-08-05] MEDS: ETHAMBUTOL 400 MG TAB PO (09:11)
[2018-08-05] MEDS: RIFABUTIN 150 MG CAP PO ×2 (09:11→20:02)
[2018-08-05] MEDS: CEFTRIAXONE 2 GM/50 ML (PMX) 50 ML IVPB (20:02)
[2018-08-05] MEDS: ACETAMINOPHEN 325 MG TAB PO (20:03)
[2018-08-06 05:03] LABS: ADD MAN DIFF? NO
[2018-08-06 05:06] LABS: BASOPHILS % 0.3 % (0.0-2.0); EOSINOPHILS % 0.3 % (0.0-7.0); HEMATOCRIT 41.1 % (42.0-52.0); HEMOGLOBIN 13.1 g/dl (14.0-18.0); LYMPHOCYTES # 0.9 10^3/ul (0.8-2.9); LYMPHOCYTES % 28.3 % (15.0-51.0); MEAN CORPUSCULAR HEMOGLOBIN 26.1 pg (29.0-33.0); MEAN CORPUSCULAR HGB CONC 31.9 g/dl (32.0-37.0); MEAN PLATELET VOLUME 10.9 fl (7.4-10.4); MONOCYTE # 0.5 10^3/ul (0.3-0.9); MONOCYTES % 13.9 % (0.0-11.0); NEUTROPHIL # 1.9 10^3/ul (1.6-7.5); NEUTROPHILS % 56.6 % (39.0-77.0); PLATELET COUNT 119 10^3/UL (140-415); RED BLOOD COUNT 5.01 10^6/ul (4.70-6.10); RED CELL DISTRIBUTION WIDTH 12.8 % (11.5-14.5)
[2018-08-06 05:06] LABS: WHITE BLOOD COUNT 3.3 10^3/ul (4.8-10.8)
[2018-08-06] MEDS: ACETAMINOPHEN 325 MG TAB PO ×2 (05:12→14:58)
[2018-08-06] MEDS: CLARITHROMYCIN 500 MG TAB PO ×2 (08:37→21:38)
[2018-08-06] MEDS: ETHAMBUTOL 400 MG TAB PO (08:37)
[2018-08-06] MEDS: RIFABUTIN 150 MG CAP PO ×2 (08:38→21:38)
[2018-08-06] MEDS: CEFTRIAXONE 2 GM/50 ML (PMX) 50 ML IVPB ×2 (21:38→21:43)
[2018-08-07] MEDS: ACETAMINOPHEN 325 MG TAB PO ×3 (03:02→21:54)
[2018-08-07 06:03] LABS: ADD MAN DIFF? NO
[2018-08-07 06:09] LABS: BASOPHILS % 0.3 % (0.0-2.0); HEMATOCRIT 37.9 % (42.0-52.0); HEMOGLOBIN 12.1 g/dl (14.0-18.0); LYMPHOCYTES # 0.7 10^3/ul (0.8-2.9); LYMPHOCYTES % 23.4 % (15.0-51.0); MEAN CORPUSCULAR HGB CONC 31.9 g/dl (32.0-37.0); MEAN CORPUSCULAR VOLUME 81.3 fl (82.0-101.0); MEAN PLATELET VOLUME 11.4 fl (7.4-10.4); MONOCYTE # 0.5 10^3/ul (0.3-0.9); MONOCYTES % 15.1 % (0.0-11.0); NEUTROPHIL # 1.8 10^3/ul (1.6-7.5); NEUTROPHILS % 60.2 % (39.0-77.0); PLATELET COUNT 129 10^3/UL (140-415); RED BLOOD COUNT 4.66 10^6/ul (4.70-6.10); RED CELL DISTRIBUTION WIDTH 12.6 % (11.5-14.5)
[2018-08-07 06:38] LABS: ALANINE AMINOTRANSFERASE 83 IU/L (13-69); ALBUMIN 3.6 g/dl (3.3-4.9); ALBUMIN/GLOBULIN RATIO 0.94; ALKALINE PHOSPHATASE 67 IU/L (42-121); ANION GAP 9 (5-13); ASPARTATE AMINO TRANSFERASE 63 IU/L (15-46); BILIRUBIN,INDIRECT 0.1 mg/dl (0-1.1); BILIRUBIN,TOTAL 0.1 mg/dl (0.2-1.3); BLOOD UREA NITROGEN 16 mg/dl (7-20); CALCIUM 8.8 mg/dl (8.4-10.2); CARBON DIOXIDE 25 mmol/L (21-31); CHLORIDE 106 mmol/L (97-110); CREATININE 0.74 mg/dl (0.61-1.24); Estimated GFR > 60 mL/min (>60); GLUCOSE 105 mg/dl (70-220); POTASSIUM 4.2 mmol/L (3.5-5.1); SODIUM 140 mmol/L (135-144); TOTAL PROTEIN 7.4 g/dl (6.1-8.1)
[2018-08-07 07:01] LABS: C-REACTIVE PROTEIN 4.8 mg/dl (0.0-0.9)
[2018-08-07] MEDS: ETHAMBUTOL 400 MG TAB PO (09:42)
[2018-08-07] MEDS: RIFABUTIN 150 MG CAP PO ×2 (09:42→21:54)
[2018-08-07] MEDS: CLARITHROMYCIN 500 MG TAB PO ×2 (09:42→21:54)
[2018-08-07] MEDS: CEFTRIAXONE 2 GM/50 ML (PMX) 50 ML IVPB (21:54)
[2018-08-08] MEDS: ACETAMINOPHEN 325 MG TAB PO ×3 (05:51→20:22)
[2018-08-08] MEDS: RIFABUTIN 150 MG CAP PO ×2 (09:23→20:22)
[2018-08-08] MEDS: CLARITHROMYCIN 500 MG TAB PO ×2 (09:23→20:22)
[2018-08-08] MEDS: ETHAMBUTOL 400 MG TAB PO (09:25)
[2018-08-08] MEDS: IOHEXOL 14.3 MG(I)/ML (ADULT) BTL PO (14:30)
[2018-08-08] MEDS: SOD CHLORIDE 0.9% 100 ML (15:19)
[2018-08-08] MEDS: IOHEXOL 300MG/ML 150 ML BTL (15:19)
[2018-08-08] MEDS: CIPROFLOXACIN 500 MG TAB PO (18:15)
[2018-08-08] MEDS: CEFTRIAXONE 2 GM/50 ML (PMX) 50 ML IVPB (20:22)
[2018-08-09] MEDS: ACETAMINOPHEN 325 MG TAB PO ×3 (02:25→18:30)
[2018-08-09] MEDS: CIPROFLOXACIN 500 MG TAB PO ×2 (05:43→18:28)
[2018-08-09] MEDS: RIFABUTIN 150 MG CAP PO ×2 (09:08→21:30)
[2018-08-09] MEDS: CLARITHROMYCIN 500 MG TAB PO ×2 (09:08→21:30)
[2018-08-09] MEDS: CEFTRIAXONE 2 GM/50 ML (PMX) 50 ML IVPB (21:30)
[2018-08-10] MEDS: ACETAMINOPHEN 325 MG TAB PO ×2 (01:07→09:49)
[2018-08-10 05:51] LABS: ADD MAN DIFF? NO
[2018-08-10 05:56] LABS: ABNORMAL IP MESSAGE 1; BASOPHILS % 0.3 % (0.0-2.0); EOSINOPHILS % 0.7 % (0.0-7.0); HEMATOCRIT 35.3 % (42.0-52.0); HEMOGLOBIN 11.4 g/dl (14.0-18.0); LYMPHOCYTES # 0.5 10^3/ul (0.8-2.9); LYMPHOCYTES % 15.8 % (15.0-51.0); MEAN CORPUSCULAR HEMOGLOBIN 26.5 pg (29.0-33.0); MEAN CORPUSCULAR HGB CONC 32.3 g/dl (32.0-37.0); MEAN CORPUSCULAR VOLUME 81.9 fl (82.0-101.0); MEAN PLATELET VOLUME 11.3 fl (7.4-10.4); MONOCYTE # 0.4 10^3/ul (0.3-0.9); MONOCYTES % 13.1 % (0.0-11.0); NEUTROPHILS % 68.4 % (39.0-77.0); PLATELET COUNT 154 10^3/UL (140-415); POSITIVE DIFF @See below; RED BLOOD COUNT 4.31 10^6/ul (4.70-6.10); RED CELL DISTRIBUTION WIDTH 12.7 % (11.5-14.5)
[2018-08-10 06:17] LABS: IRON 26 ug/dl (35-150)
[2018-08-10 06:21] LABS: ALANINE AMINOTRANSFERASE 62 IU/L (13-69); ALBUMIN 3.4 g/dl (3.3-4.9); ALKALINE PHOSPHATASE 61 IU/L (42-121); ANION GAP 6 (5-13); ASPARTATE AMINO TRANSFERASE 54 IU/L (15-46); BILIRUBIN,INDIRECT 0.1 mg/dl (0-1.1); BILIRUBIN,TOTAL 0.1 mg/dl (0.2-1.3); BLOOD UREA NITROGEN 14 mg/dl (7-20); CALCIUM 8.8 mg/dl (8.4-10.2); CARBON DIOXIDE 27 mmol/L (21-31); CHLORIDE 107 mmol/L (97-110); CREATININE 0.84 mg/dl (0.61-1.24); Estimated GFR > 60 mL/min (>60); GLUCOSE 118 mg/dl (70-220); PHOSPHORUS 2.9 mg/dl (2.5-4.9); POTASSIUM 4.9 mmol/L (3.5-5.1); SODIUM 140 mmol/L (135-144); TOTAL PROTEIN 7.1 g/dl (6.1-8.1)
[2018-08-10 06:27] LABS: % IRON SATURATION 12 % SAT (22-52); TOTAL IRON BINDING CAPACITY 213 ug/dl (241-421)
[2018-08-10] MEDS: CIPROFLOXACIN 500 MG TAB PO ×2 (06:48→17:32)
[2018-08-10] MEDS: CLARITHROMYCIN 500 MG TAB PO ×2 (08:45→20:50)
[2018-08-10] MEDS: RIFABUTIN 150 MG CAP PO ×2 (08:45→20:50)
[2018-08-10] MEDS: IOHEXOL 14.3 MG(I)/ML (ADULT) BTL PO (18:11)
[2018-08-10] MEDS: SOD CHLORIDE 0.9% 100 ML (20:12)
[2018-08-10] MEDS: IOHEXOL 300MG/ML 150 ML BTL (20:12)
[2018-08-10] MEDS: CEFTRIAXONE 2 GM/50 ML (PMX) 50 ML IVPB (20:50)
[2018-08-11] MEDS: ACETAMINOPHEN 325 MG TAB PO ×3 (00:41→16:38)
[2018-08-11 05:32] LABS: ADD MAN DIFF? NO
[2018-08-11 05:41] LABS: ABNORMAL IP MESSAGE 1; EOSINOPHILS % 0.7 % (0.0-7.0); HEMATOCRIT 36.6 % (42.0-52.0); HEMOGLOBIN 11.8 g/dl (14.0-18.0); LYMPHOCYTES # 0.3 10^3/ul (0.8-2.9); LYMPHOCYTES % 7.9 % (15.0-51.0); MEAN CORPUSCULAR HEMOGLOBIN 26.2 pg (29.0-33.0); MEAN CORPUSCULAR HGB CONC 32.2 g/dl (32.0-37.0); MEAN CORPUSCULAR VOLUME 81.2 fl (82.0-101.0); MEAN PLATELET VOLUME 11.6 fl (7.4-10.4); MONOCYTE # 0.3 10^3/ul (0.3-0.9); MONOCYTES % 6.9 % (0.0-11.0); NEUTROPHIL # 3.4 10^3/ul (1.6-7.5); NEUTROPHILS % 83.5 % (39.0-77.0); PLATELET COUNT 163 10^3/UL (140-415); POSITIVE DIFF @See below; RED BLOOD COUNT 4.51 10^6/ul (4.70-6.10); RED CELL DISTRIBUTION WIDTH 12.9 % (11.5-14.5)
[2018-08-11] MEDS: CIPROFLOXACIN 500 MG TAB PO ×2 (05:56→18:03)
[2018-08-11 06:11] LABS: ANION GAP 10 (5-13); BLOOD UREA NITROGEN 16 mg/dl (7-20); CARBON DIOXIDE 24 mmol/L (21-31); CHLORIDE 105 mmol/L (97-110); CREATININE 0.95 mg/dl (0.61-1.24); Estimated GFR > 60 mL/min (>60); GLUCOSE 115 mg/dl (70-220); POTASSIUM 4.8 mmol/L (3.5-5.1); SODIUM 139 mmol/L (135-144)
[2018-08-11 06:19] LABS: CREATINE KINASE 27 IU/L (23-200)
[2018-08-11] MEDS: RIFABUTIN 150 MG CAP PO ×2 (09:13→20:48)
[2018-08-11] MEDS: CLARITHROMYCIN 500 MG TAB PO ×2 (09:13→20:51)
[2018-08-11] MEDS: SOD FERRIC GLUC COMPLX 125 MG in SOD CHLORIDE 0.9% 100 ML IVPB (13:16)
[2018-08-12 05:37] LABS: HEMATOCRIT 34.9 % (42.0-52.0); HEMOGLOBIN 11.2 g/dl (14.0-18.0); MEAN CORPUSCULAR HEMOGLOBIN 26.1 pg (29.0-33.0); MEAN CORPUSCULAR HGB CONC 32.1 g/dl (32.0-37.0); MEAN CORPUSCULAR VOLUME 81.4 fl (82.0-101.0); MEAN PLATELET VOLUME 11.4 fl (7.4-10.4); PLATELET COUNT 152 10^3/UL (140-415); POSITIVE DIFF @See below; RED BLOOD COUNT 4.29 10^6/ul (4.70-6.10); RED CELL DISTRIBUTION WIDTH 12.8 % (11.5-14.5)
[2018-08-12 05:37] LABS: WHITE BLOOD COUNT 3.2 10^3/ul (4.8-10.8)
[2018-08-12] MEDS: CIPROFLOXACIN 500 MG TAB PO ×2 (05:46→17:17)
[2018-08-12 05:55] LABS: ADD MAN DIFF? YES
[2018-08-12 06:13] LABS: ANION GAP 6 (5-13); BLOOD UREA NITROGEN 13 mg/dl (7-20); CALCIUM 8.6 mg/dl (8.4-10.2); CARBON DIOXIDE 28 mmol/L (21-31); CHLORIDE 106 mmol/L (97-110); CREATININE 0.86 mg/dl (0.61-1.24); Estimated GFR > 60 mL/min (>60); GLUCOSE 95 mg/dl (70-220); POTASSIUM 4.5 mmol/L (3.5-5.1); SODIUM 140 mmol/L (135-144)
[2018-08-12 07:55] LABS: ANISOCYTOSIS 1+ (0-0); BAND NEUTROPHILS #M 0.7 10^3/ul (0.0-0.6); BAND NEUTROPHILS % (M) 22 % (0-4); EOSINOPHILS % (M) 1 % (0-7); GIANT THROMBO% (M) 3 % (0-0); LYMPHOCYTES #M 0.9 10^3/ul (0.8-2.9); LYMPHOCYTES % (M) 30 % (15-51); MICROCYTOSIS 1+ (0-0); MONOCYTE #M 0.1 10^3/ul (0.3-0.9); MONOCYTES % (M) 6 % (0-11); MYELOCYTES % (M) 1 % (0-0); PLATELET ESTIMATE NORMAL; POLYCHROMASIA 1+ (0-0); REACTIVE LYMPHOCYTES% (M) 2 % (0-0); SEG NEUT #M 1.2 10^3/ul (1.6-7.5); SEGMENTED NEUTROPHILS (M) % 38 % (39-77); SMUDGE%M 17 % (0-0)
[2018-08-12] MEDS: CLARITHROMYCIN 500 MG TAB PO ×2 (08:09→20:54)
[2018-08-12] MEDS: RIFABUTIN 150 MG CAP PO ×2 (08:09→20:54)
[2018-08-12] MEDS: SOD FERRIC GLUC COMPLX 125 MG in SOD CHLORIDE 0.9% 100 ML IVPB (12:56)
[2018-08-13] MEDS: CIPROFLOXACIN 500 MG TAB PO ×2 (06:14→17:14)
[2018-08-13] MEDS: CLARITHROMYCIN 500 MG TAB PO ×2 (08:48→20:47)
[2018-08-13] MEDS: RIFABUTIN 150 MG CAP PO ×2 (08:48→20:47)
[2018-08-13] MEDS: SOD FERRIC GLUC COMPLX 125 MG in SOD CHLORIDE 0.9% 100 ML IVPB ×2 (12:36→12:52)
[2018-08-13] MEDS: IBUPROFEN 400 MG TAB PO (22:24)
[2018-08-14] MEDS: CIPROFLOXACIN 500 MG TAB PO (06:07)
[2018-08-14] MEDS: CLARITHROMYCIN 500 MG TAB PO (09:03)
[2018-08-14] MEDS: RIFABUTIN 150 MG CAP PO (09:03)
[2018-08-14] MEDS: DOCUSATE SODIUM 100 MG CAP PO (09:04)
== END 2018-08-14 13:45 | disposition home or self-care (01) | DRG 871 ==
LOC: E/R 01:58 → PP2 06:03
DX: A41.89 Other specified sepsis (principal); J15.8 Pneumonia due to other specified bacteria; E87.2 Acidosis; D61.818 Other pancytopenia; A31.0 Pulmonary mycobacterial infection; R65.20 Severe sepsis without septic shock; D64.9 Anemia, unspecified; R51 Headache; J47.9 Bronchiectasis, uncomplicated
CPT/HCPCS: 36415; 71045; 71260; 74177; 78806; 80048; 80053; 80061; 80076; 80202; 82550; 83036; 83540; 83605; 83735; 84100; 84443; 84484; 85025; 85610; 85651; 85730; 86140; 86703; 87040-91; 87070; 87116; 93005; 93306; 96374; 96375; 99285-25